=== PATIENT | female | born 1980 | race African-American/Black ===

== ENCOUNTER 2021-04-04 17:05 | Inpatient (IN) | payer MEDICAID ==
[~2021-04-04] VITALS: Ht 170.2 cm; Wt 102.1 kg
[~2021-04-04 17:05] MED LIST: PREN27TA7 OR
[2021-04-04] MEDS ORDERED: TRANEXAMIC ACID 1,000 MG in SODIUM CHL 0.9% 100 ML IV PRN (18:00)
[2021-04-04] MEDS ORDERED: METHYLERGONOVINE MALEATE 0.2 MG/ML AMP IM PRN (18:00)
[2021-04-04] MEDS ORDERED: WITCH HAZEL-GLYCERIN PAD TOP PRN (18:00)
[2021-04-04] MEDS ORDERED: miSOPROStol 100 mcg TAB PR PRN (18:00)
[2021-04-04] MEDS ORDERED: miSOPROStol 100 mcg TAB SL PRN (18:00)
[2021-04-04] MEDS ORDERED: PENICILLIN G POT 5MIL/D5 50ML 50 ML IV ONE (18:00)
[2021-04-04] MEDS ORDERED: PROMETHAZINE HCL 25 MG/ML 1ML IV PRN (18:00)
[2021-04-04] MEDS ORDERED: DERMOPLAST 60ML BOTTLE TOP PRN (18:00)
[2021-04-04] MEDS ORDERED: LIDOCAINE 2%HCL (LOCAL ANESTH.) INJ 20ML MDV IJ PRN (18:00)
[2021-04-04] MEDS ORDERED: LACTATED RINGER'S 1,000 ML IV SCH (18:00)
[2021-04-04] MEDS ORDERED: BUTORPHANOL TARTRATE 2 MG/1 ML VIAL IV PRN ×2 (18:00)
[2021-04-04] MEDS ORDERED: LACT. RINGERS/OXYTOCIN 20UNITS 500 ML IV ONE ×2 (18:00→18:30)
[2021-04-04] MEDS ORDERED: PHISODERM TOP SOLN 240ML BTL TOP PRN (18:00)
[2021-04-04 18:31] LABS: Albumin 2.5 g/dL (3.4-5.0); Potassium 3.6 mmol/L (3.5-5.1)
[2021-04-04 18:33] LABS: Amphetamine Screen, Urine NEGATIVE (NEGATIVE); Barbiturate Scree,Urine NEGATIVE (NEGATIVE); Benzodiazephine Screen, Urine NEGATIVE (NEGATIVE); Cannabinoid Screen, Urine NEGATIVE (NEGATIVE); Cocaine Screen, Urine NEGATIVE (NEGATIVE); Opiate Scree,Urine NEGATIVE (NEGATIVE); Phencyclidine Screen, Urine NEGATIVE (NEGATIVE)
[2021-04-04 18:35] LABS: BUN/Creatinine Ratio 12.9; Bilirubin, Total 0.3 mg/dL (0.2-1.0); Total Protein 7.2 g/dL (6.4-8.2)
[2021-04-04 18:46] LABS: Urine Bacteria FEW /hpf (None Seen); Urine Blood Negative /uL (Negative); Urine Mucus FEW (None Seen); Urine Specific Gravity 1.025 (1.001-1.035); Urine WBC 46 /hpf (0 - 5)
[2021-04-04 18:50] LABS: INR 0.98 (0.9-1.15); Partial Thromboplastin Time 28.1 sec (23.6-33.0)
[2021-04-04 19:29] LABS: Basophils # (auto) 0 10 ^3/uL (0-0.2); Basophils % (auto) 0.4 % (0.0-2.0); Eosinophils # (auto) 0 10 ^3/uL (0-0.8); Eosinophils % (auto) 0.4 % (0.0-7.0); Hematocrit 33.6 % (36.0-46.0); Hemoglobin 11.3 g/dL (12.2-16.2); Lymphocytes # (auto) 2.5 10 ^3/uL (0.4-5.4); Lymphocytes % (auto) 30.4 % (10.0-50.0); Mean Corpuscular Hemoglobin 28.9 pg (28.0-32.0); Mean Corpuscular Hgb Conc. 33.5 g/dL (32.0-36.0); Mean Corpuscular Volume 86.3 fL (80.0-100.0); Monocytes # (auto) 0.6 10 ^3/uL (0-1.3); Monocytes % (auto) 7.2 % (0.0-12.0); Neutrophils # (auto) 5.1 10 ^3/uL (1.6-8.6); Neutrophils % (auto) 61.6 % (37.0-80.0); Nucleated Red Blood Cells % 0.1 %; Red Cell Distribution Width 15.6 % (11.8-14.3); White Blood Cell 8.4 10^3/uL (4.4-10.8)
[2021-04-04] MEDS ORDERED: cefTRIAXone 1GM/50ML D5W 50 ML IV SCH (21:15)
[2021-04-04] MEDS ORDERED: PENICILLIN G POTASSIUM 2,500,000 UNITS in D5W 5% 50 ML IV SCH (22:00)
[2021-04-05 03:00] VITALS: BP 126/75
[2021-04-05 07:00] VITALS: BP 119/62
[2021-04-05] MEDS ORDERED: ACETAMINOPHEN 325 MG TAB PO PRN (07:30)
[2021-04-05] MEDS ORDERED: IBUPROFEN 600 MG TAB PO PRN (07:30)
[2021-04-05 11:00] VITALS: BP 98/55
[2021-04-05] MEDS ORDERED: IBUPROFEN 800 MG TAB PO SCH (12:00)
[2021-04-05 15:30] VITALS: BP 122/60
[2021-04-05 19:00] VITALS: BP 117/71
[2021-04-05 23:30] VITALS: BP 109/65
[2021-04-06 03:01] VITALS: BP 121/61
[2021-04-06 07:00] VITALS: BP 120/68
[2021-04-08 06:06] LABS: RPR Non Reactive (Non Reactive)
== END 2021-04-06 10:28 | disposition home or self-care (01) | DRG 560 ==
LOC: UNDOADMOB 17:05 → LDRP 17:05 → INTOOBSV 18:00 → OBSVTOIN 18:00
PROVIDERS: ADMIT Obstetrics & Gynecology; ATTEND Obstetrics & Gynecology
PROC: 10E0XZZ Delivery of Products of Conception, External Approach (ICD-10-PCS; principal; 2021-04-05)
DX: O23.43 Unspecified infection of urinary tract in pregnancy, third trimester (principal); Z37.0 Single live birth; O99.214 Obesity complicating childbirth; Z20.822 Contact with and (suspected) exposure to COVID-19; N39.0 Urinary tract infection, site not specified; Z3A.39 39 weeks gestation of pregnancy
CPT/HCPCS: 36415; 59025; 59409; 76805; 76818; 80053; 80307; 81001; 81002; 85025; 85610; 85730; 86592; 86703; 86762; 86850; 86900; 86901; 87340; 87426; 94760; 96360; 96361; 96365; 96366; 96372; 96374; G0378; J0696; J2540; J2590; J7060